=== PATIENT | female | born 1975 | race African-American/Black ===

== ENCOUNTER 2016-12-24 11:09 | Emergency (ER) | payer OTHER ==
[2016-12-24 11:15] VITALS: BP 134/90; PULSE 77; TEMP 98.3; BMI 36.0
[2016-12-24] MEDS ORDERED: KETOROLAC TROMETHAMINE 30 MG/1 ML VIAL IVPUSH ONE (12:11)
[2016-12-24] MEDS ORDERED: METOCLOPRAMIDE HCL INJECTION 10 MG/2 ML VIAL IVPUSH ONE (12:11)
[2016-12-24] MEDS ORDERED: SODIUM CHLORIDE 0.9% 1000 ML INFUS.BAG IV ONE (12:11)
--- NOTE | 2016-12-24 12:11 | PDOC ---
History of Present Illness - General Chief Complaint: Headache Stated Complaint: PAIN Time Seen by Provider: 12/24/16 11:21 - History of Present Illness Initial Comments: 12/24/16 12:10 CC: Headache History of Present Illness: 41 yo F with hx of seasonal allergies and migraines presents to ED with headache x 4 days. Patient states this feels like her regular migraines. She was prescribed Naproxen by her previous doctor but it has not provided any relief. Meds: No anticoagulants, OCPs. Allergies: apple, avocado, peach REVIEW OF SYSTEMS GENERAL/CONSTITUTIONAL: No fever or chills. No weakness. No weight change. HEAD, EYES, EARS, NOSE AND THROAT: Photophobia. Denies phonophobia. No ear pain or discharge. No sore throat. CARDIOVASCULAR: No chest pain or shortness of breath. RESPIRATORY: No cough, wheezing, or hemoptysis. GASTROINTESTINAL: "Some" nausea. Denies vomiting. No diarrhea or constipation. No rectal bleeding. GENITOURINARY: No dysuria, frequency, or change in urination. MUSCULOSKELETAL: No joint or muscle swelling or pain. No neck or back pain. SKIN AND BREASTS: No rash or easy bruising. NEUROLOGIC: Frontal headache x 4 days. Denies vertigo, loss of consciousness, altered mental status, or loss of sensation. PHYSICAL EXAM General Appearance: Appropriately dressed. No apparent distress, no intoxication HEENT: EOMI, FELICE. No nystagmus. Normal voice. TMs normal, pharynx normal. No pallor of conjunctivae, no scleral icterus Neck: Supple, trachea midline. No tenderness, rigidity, carotid bruit, stridor , lymphadenopathy, thyromegaly. Respiratory/Chest: Lungs CTAB. Musculoskeletal: Normal Inspection. No CVA Tenderness, Decreased Range of Motion] Extremity: FROM of all extremities, Normal Capillary Refill, Normal Inspection, Normal Range of Motion, Pelvis Stable. No tenderness, Pedal Edema, Swelling, Erythema or deformity Integumentary: Normal Color, Dry, Warm, . 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 No appreciable EOM Palsy, Facial Droop or Sensory Deficit Past History - Past Medical History Allergies/Adverse Reactions: Allergies Allergy/AdvReac Type Severity Reaction Status Date / Time apple [Apple] Allergy Mild Rash Verified 12/24/16 11:15 avocado [Avocado] Allergy Mild Rash Verified 12/24/16 11:15 peach [[place]] Allergy Mild Rash Verified 12/24/16 11:15 No Known Drug Allergies Allergy Verified 12/24/16 11:15 Home Medications: Ambulatory Orders Naproxen [Naprosyn -] 500 mg PO BID #20 tablet 08/30/15 Aspirin/Acetaminophen/Caffeine [Excedrin Migraine Caplet] 1 each PO DAILY PRN # 7 tablet 12/24/16 Anemia: No Asthma: No Cancer: No Cardiac Disorders: No Diabetes: No HTN: No Seizures: No Thyroid Disease: No Other medical history: PATIENT DENIES MEDICAL HISTORY - Surgical History Abdominal Surgery: Yes (HERNIA REPAIR UMBILICAL) - Psycho/Social/Smoking Cessation Hx Anxiety: No Suicidal Ideation: No Smoking Status: No Smoking History: Never smoked Have you smoked in the past 12 months: No Number of Cigarettes Smoked Daily: 0 Hx Alcohol Use: No Drug/Substance Use Hx: No Substance Use Type: None Hx Substance Use Treatment: No *Physical Exam - Vital Signs Last Vital Signs Temp Pulse Resp BP Pulse Ox 98.3 F 77 18 134/90 99 12/24/16 11:12 12/24/16 11:12 12/24/16 11:12 12/24/16 11:12 12/24/16 11:12 Medical Decision Making - Medical Decision Making 12/24/16 12:14 41 yo F with hx of seasonal allergies and migraines presents to ED with headache x 4 days. -IVF, Toradol, Reglan, Benadryl 12/24/16 14:15 Patient reassessed; reports that she feels better at this time. Will discharge to home with Excedrin rx and close f/u with PMD. Advised patient of signs and symptoms for return to ER; patient verbalized understanding and agrees to plan. *DC/Admit/Observation/Transfer Diagnosis at time of Disposition: Migraine Qualifiers: Migraine type: other Status migrainosus presence: without status migrainosus Intractability: not intractable Qualified Code(s): G43.809 - Other migraine, not intractable, without status migrainosus - Discharge Dispostion Disposition: HOME Condition at time of disposition: Improved Admit: No - Prescriptions Prescriptions: Aspirin/Acetaminophen/Caffeine [Excedrin Migraine Caplet] 1 each PO DAILY PRN # 7 tablet PRN Reason: Headache - Referrals Referrals: Mik Gonzales MD [Primary Care Provider] - - Patient Instructions Printed Discharge Instructions: DI for Migraine Additional Instructions: Please take medication as prescribed. As discussed, please follow up with your primary care doctor for continued management of your migraines. If you experience any sudden, severe, "thunderclap" headache, change in vision, difficulty speaking, eating, or swallowing, or have any change in mental status , fever, vomiting, or any new or worsening symptoms, please return to the ER.
[2016-12-24] MEDS ORDERED: METOCLOPRAMIDE HCL INJECTION 10 MG/2 ML VIAL ONE (12:17)
[2016-12-24] MEDS ORDERED: KETOROLAC TROMETHAMINE 30 MG/1 ML VIAL ONE (12:18)
== END 2016-12-24 14:38 | disposition home or self-care (01) ==
LOC: JER 11:09
PROC: 3E033GC Introduction of Other Therapeutic Substance into Peripheral Vein, Percutaneous Approach (ICD-10-PCS; principal; 2016-12-24)
PROC: 3E0333Z Introduction of Anti-inflammatory into Peripheral Vein, Percutaneous Approach (ICD-10-PCS; 2016-12-24)
DX: G43.809 Other migraine, not intractable, without status migrainosus (principal)
CPT/HCPCS: 96374; 96375; 99282-25